=== PATIENT | female | born 1995 | race African-American/Black ===

== ENCOUNTER 2018-02-02 09:30 | Emergency (ER) | payer OTHER ==
[~2018-02-02] VITALS: Ht 160 cm; Wt 105.0 kg
[2018-02-02 09:47] VITALS: BP 139/102
== END 2018-02-02 16:18 | disposition home or self-care (01) ==
LOC: ER 09:30
DX: S83.8X1A Sprain of other specified parts of right knee, initial encounter (principal); X50.1XXA Overexertion from prolonged static or awkward postures, initial encounter; Y93.89 Activity, other specified; Y92.89 Other specified places as the place of occurrence of the external cause; Y99.8 Other external cause status
CPT/HCPCS: 73562; 81025; 99284

== ENCOUNTER 2020-08-31 10:05 | Emergency (ER) | payer MEDICAID, OTHER ==
[~2020-08-31] VITALS: Ht 167.6 cm; Wt 91.0 kg
[2020-08-31 11:17] LABS: BASOPHILS % 0.7 % (0.0-2.0); EOSINOPHILS % 1.8 % (0.0-5.0); HEMATOCRIT. 38.4 % (36.0-48.0); HEMOGLOBIN. 13.3 g/dL (12.0-16.0); LYMPHOCYTES % 30.8 % (20.0-50.0); MEAN CORPUSCULAR HEMOGLOBIN 30.7 pg (28.0-32.0); MEAN CORPUSCULAR VOLUME 88.7 fL (81.0-99.0); MEAN PLATELET VOLUME 7.2 fl (7.4-10.4); MONOCYTES % 8.9 % (2.0-8.0); NEUTROPHILS % 57.8 % (40.0-76.0); PLATELET 261 x1000/uL (130-400); RED BLOOD CELL COUNT 4.33 mill/uL (4.2-5.4); RED CELL DISTRIBUTION WIDTH 12.3 % (11.6-14.6)
[2020-08-31 11:24] LABS: CHLORIDE 112 mEq/L (98-107)
[2020-08-31 11:31] LABS: HCG SCREEN NEGATIVE
[2020-08-31 12:36] VITALS: BP 126/84
== END 2020-08-31 13:02 | disposition home or self-care (01) ==
LOC: ER 10:05
DX: R55 Syncope and collapse (principal)
CPT/HCPCS: 36415; 71045; 80053; 81025; 84484; 84703; 85025; 93005; 99285